=== PATIENT | male | born 1990 | race Hispanic/Latino ===

== ENCOUNTER 2022-01-19 05:00 | Emergency (ER) | payer SELFPAY ==
[~2022-01-19] VITALS: Ht 165.1 cm; Wt 112.5 kg
== END 2022-01-19 05:50 | disposition home or self-care (01) ==
LOC: EDSEX 05:10 → ER 05:10
DX: K21.9 Gastro-esophageal reflux disease without esophagitis (principal); F17.210 Nicotine dependence, cigarettes, uncomplicated
CPT/HCPCS: 99283

== ENCOUNTER 2022-03-10 02:14 | Emergency (ER) | payer SELFPAY ==
[~2022-03-10] VITALS: Ht 165.1 cm; Wt 112.5 kg
[2022-03-10 03:00] VITALS: BP 120/84
== END 2022-03-10 06:45 | disposition home or self-care (01) ==
LOC: ER 02:22
DX: F15.99 Other stimulant use, unspecified with unspecified stimulant-induced disorder (principal); T43.615A Adverse effect of caffeine, initial encounter; K21.9 Gastro-esophageal reflux disease without esophagitis; F17.210 Nicotine dependence, cigarettes, uncomplicated
CPT/HCPCS: 93005; 99283